=== PATIENT | male | born 1980 | race Two or more races ===

== ENCOUNTER 2021-01-23 14:26 | Emergency (ER) | payer MEDICAID, OTHER ==
[~2021-01-23] VITALS: Ht 182.9 cm; Wt 95.3 kg
[2021-01-23 16:11] VITALS: BP 100/40
[2021-01-23] MEDS ORDERED: LIDOCAINE VISCOUS 2% 15ML UD PO ONE (16:45)
[2021-01-23] MEDS ORDERED: cefTRIAXone SOD 1,000 MG VL IM ONE (16:45)
== END 2021-01-23 17:20 | disposition home or self-care (01) ==
LOC: ER 14:26
DX: K12.0 Recurrent oral aphthae (principal); J02.9 Acute pharyngitis, unspecified; F12.10 Cannabis abuse, uncomplicated
CPT/HCPCS: 96372